=== PATIENT | male | born 1960 | race Two or more races ===

== ENCOUNTER → 2024-07-11 | Outpatient (CLI) | payer MEDICAID, SELFPAY ==
--- NOTE | 2024-07-11 15:00 | XR_ITS ---
Examination: Thyroid sonography complete TECHNIQUE: Grayscale sonographic images thyroid lobes with color flow analysis Exam date and time: July 11, 2024 at 1458 hours INDICATIONS: Diagnosis hyperthyroidism on laboratory examination this month FINDINGS: Right thyroid 4.8 x 2.1 x 1.8 cm Left thyroid 4.4 x 1.6 x 1.9 cm No thyroid nodules IMPRESSION: No discrete thyroid nodules Given the patient's history, consider correlation with oral I-123 thyroid uptake and scan
== END | disposition home or self-care (01) ==
PROVIDERS: PCP Nurse Practitioner Primary Care; Referring Provider Nurse Practitioner Primary Care; Visit Provider Nurse Practitioner Primary Care
DX: E05.90 Thyrotoxicosis, unspecified without thyrotoxic crisis or storm (principal)
CPT/HCPCS: 76536

== ENCOUNTER 2024-10-14 09:00 | Outpatient (RCR) | payer MEDICAID, SELFPAY ==
--- NOTE | 2024-10-13 09:03 | XR_ITS ---
Examination: Nuclear medicine thyroid scan and uptake Exam date and time: October 13, 2024 0853 hours INDICATIONS: Diagnosis thyroid toxicosis unspecified without thyrotoxic crisis or storm, irritation in the throat months TECHNIQUE AND FINDINGS: Oral administration 276 uCi I-123 6 hour 24 uptake values recorded as well as anterior oblique scans 6 hour uptake 6.5% normal range 6-24% 24 hour uptake 17% normal range 10-36% Normal thyroid scans IMPRESSION: Negative examination
== END 2024-10-19 23:59 | disposition home or self-care (01) ==
LOC: SNUC 09:00
PROVIDERS: PCP Nurse Practitioner Primary Care; Referring Provider Nurse Practitioner Primary Care; Visit Provider Nurse Practitioner Primary Care
DX: E05.90 Thyrotoxicosis, unspecified without thyrotoxic crisis or storm (principal)
CPT/HCPCS: 78014; A9516